=== PATIENT | female | born 1955 | race Caucasian/White ===

== ENCOUNTER → 2016-12-04 | Outpatient (CLI) | payer OTHER ==
--- NOTE | 2016-12-04 11:51 | PCVCIMAG ---
APPROVED REPORT Exam: Stress Echocardiogram Indication: Palpitations, Tachycardia/SVT, Dyspnea Stress Nurse: Babita Timmons RN Status: routine Ht: 5 ft 4 in HR: 104 bpm BP: 120/90 mmHg Rhythm: Tachycardia Procedure The patient underwent an Exercise Stress Test using the Ishaan Protocol. Blood pressure, heart rate, and EKG were monitored. An Echocardiogram was performed by surgery technician in four stages in quad fashion. At peak stress, four selected images were obtained and placed side by side with resting images for comparison. Stress Test Details Stress Test: Exercise stress testing was performed using a Ishaan protocol. HR Resting HR: 96 bpmMax Heart Rate (APMHR): 161 bpm Max HR Achieved: 173 bpmTarget HR (85% APMHR): 136 bpm % of APMHR: 107 Recovery HR: 136 bpm HR response to stress: Normal HR response to stress BP Resting BP: 120/90 mmHg Max BP: 166/78 mmHg Recovery BP: 132/68 mmHg ECG Resting ECG: Sinus Tachycardia w/ isolated PVCs Stress ECG: Sinus Rhythm ST Change: Normal Arrhythmia: Occasional isolated PVCs Recovery ECG: Sinus Rhythm Recovery ST Change: Normal Recovery Arrhythmia: None Clinical Reason for Termination: Maximal effort Stress Symptoms: Dyspnea Exercise duration: 7 min 57 sec Highest Stage Achieved: Stage 3: 3.4 mph at 14% grade. Exercise capacity: 10.4 METs Overall Exercise Capacity for Age: Normal Pre-Stress Echo The resting Echocardiogram showed normal left ventricular contractility with an estimated Ejection Fraction of about >55%. Normal wall motion in all segments on baseline images. Post-Stress Echo The stress Echocardiogram showed normal left ventricular contractility with an estimated Ejection Fraction of about 65%. Normal augmentation of wall motion in all segments on post stress images. Clinical No clinical or ECG evidence for ischemia. Conclusion Clinical Response: Non-ischemic Exercise Capacity: Average Stress ECG Response: Non-ischemic Stress Echo Images: Non-ischemic The left ventricle is normal in size and wall thickness in both the rest and stress images. <Conclusion> The left ventricle is normal in size and wall thickness in both the rest and stress images.
== END | disposition home or self-care (01) ==
LOC: PCVCIMAG 10:14
PROVIDERS: ATTEND Internal Medicine Cardiovascular Disease
DX: I49.3 Ventricular premature depolarization (principal); I47.1 Supraventricular tachycardia; I48.92 Unspecified atrial flutter; R00.2 Palpitations
CPT/HCPCS: 93325; 93351

== ENCOUNTER → 2017-02-26 | Outpatient (CLI) | payer OTHER | END | disposition home or self-care (01) | LOC: PCVCCLINIC 10:40 | PROVIDERS: ATTEND Internal Medicine Cardiovascular Disease | DX: I47.1 Supraventricular tachycardia (principal); E78.00 Pure hypercholesterolemia, unspecified; R00.2 Palpitations; Z79.82 Long term (current) use of aspirin; Z79.899 Other long term (current) drug therapy; Z79.891 Long term (current) use of opiate analgesic | CPT/HCPCS: 93005; G0463 ==